=== PATIENT | female | born 1980 | race Hispanic/Latino ===

== ENCOUNTER 2022-09-27 22:21 | Emergency (ER) | payer OTHER ==
[~2022-09-27] VITALS: Ht 157.5 cm; Wt 87.5 kg
[2022-09-27 23:24] VITALS: BP 154/74
[2022-09-27] MEDS ORDERED: AMOX1TAB16 PO (23:25)
== END 2022-09-27 23:50 | disposition home or self-care (01) ==
LOC: EDH 22:21
DX: L03.211 Cellulitis of face (principal)

== ENCOUNTER 2023-10-31 08:51 | Emergency (ER) | payer OTHER ==
[~2023-10-31] VITALS: Ht 157.5 cm; Wt 81.6 kg
[~2023-10-31 08:51] MED LIST: AMOX1TAB16 PO
[2023-10-31 08:57] VITALS: BP 159/95; PULSE 89; RESP 16; O2SAT 99
[2023-10-31] MEDS ORDERED: SILVER SULFADIAZINE CREAM 400 GM TP SCH (09:30)
[2023-10-31] MEDS ORDERED: HYDROCODONE/ACETAMINOPHEN 5/325 MG TAB PO ONE (09:30)
[2023-10-31] MEDS ORDERED: KETOROLAC 30MG VIAL (30MG/ML) IM ONE (09:30)
[2023-10-31] MEDS ORDERED: IBUP-2071 PO (09:33)
[2023-10-31] MEDS ORDERED: MUPI22OI2 TP (09:33)
[2023-10-31] MEDS ORDERED: SILVER SULFADIAZINE CREAM 50 GM TP SCH (10:00)
[2023-10-31] MEDS ORDERED: SILVER SULFADIAZINE CREAM 50 GM TP ONE (10:00)
== END 2023-10-31 09:57 | disposition home or self-care (01) ==
LOC: EDH 08:51
DX: T21.12XA Burn of first degree of abdominal wall, initial encounter (principal); T25.122A Burn of first degree of left foot, initial encounter; T31.0 Burns involving less than 10% of body surface; Z79.899 Other long term (current) drug therapy; Z98.890 Other specified postprocedural states; T79.8XXA Other early complications of trauma, initial encounter; X08.8XXA Exposure to other specified smoke, fire and flames, initial encounter; Y93.89 Activity, other specified; Y92.89 Other specified places as the place of occurrence of the external cause; Y99.8 Other external cause status
CPT/HCPCS: 99285; 16025; 96372; J1885

== ENCOUNTER 2024-11-08 22:41 | Emergency (ER) | payer SELFPAY ==
[~2024-11-08] VITALS: Ht 157.5 cm; Wt 77.1 kg
[~2024-11-08 22:41] MED LIST changes: +IBUP-2071 PO; +MUPI22OI2 TP
--- NOTE | 2024-11-08 22:45 | NUR ---
COVID, FLU AND STREP SWABS COLLECTED AND SENT [facility] PROVIDED
[2024-11-08 23:07] LABS: RAPID GROUP A STREP negative (NEGATIVE)
[2024-11-08 23:08] LABS: SARS-CoV-2, RNA, NAAT NEGATIVE SARS CoV-2 (NEGATIVE)
[2024-11-08 23:14] LABS: INFLUENZA TYPE A Negative For Type A (NEGATIVE); INFLUENZA TYPE B Negative For Type B (NEGATIVE)
--- NOTE | 2024-11-08 23:41 | EKG ---
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
[2024-11-08 23:51] LABS: BASOPHILS # (AUTO) 0.02 K/uL (0.00-0.20); BASOPHILS % (AUTO) 0.3 % (0.0-5.0); EOSINOPHILS # (AUTO) 0.16 K/uL (0.00-0.70); EOSINOPHILS % (AUTO) 2.7 % (0.0-8.0); HEMATOCRIT 36.8 % (36-48); IMMATURE GRANULOCYTE ABSOLUTE 0.02 K/uL (0-1); LYMPHOCYTES # (AUTO) 1.2 K/uL (1.0-4.8); LYMPHOCYTES % (AUTO) 19.6 % (21.0-51.0); MEAN CORPUSCULAR HEMOGLOBIN 31.7 pg (27.0-33.0); MEAN CORPUSCULAR HGB CONC 34.8 g/dL (32.0-36.0); MEAN CORPUSCULAR VOLUME 91.1 fL (79-99); MONOCYTES # (AUTO) 0.3 K/uL (0.1-1.0); MONOCYTES % (AUTO) 5.3 % (3.0-13.0); NEUTROPHILS # (AUTO) 4.2 K/uL (1.8-7.7); NEUTROPHILS % (AUTO) 71.8 % (40.0-77.0); PLATELET COUNT (AUTO) 243 K/uL (130-400); RED BLOOD CELL COUNT(AUTO) 4.04 MIL/uL (4.00-5.50); RED CELL DISTRIBUTION WIDTH 12.9 % (11.0-15.5); WHITE BLOOD COUNT (AUTO) 5.9 K/uL (4.8-10.8)
[2024-11-09 00:06] LABS: APPEARANCE,URINE CLEAR (CLEAR); BILIRUBIN,URINE NEGATIVE (NEGATIVE); COLOR,URINE YELLOW (YELLOW); GLUCOSE, URINE (UA) NEGATIVE (NEGATIVE); KETONES,URINE NEGATIVE (NEGATIVE); LEUKOCYTE ESTERASE ,URINE NEGATIVE Leu/uL (NEGATIVE); NITRATE,URINE NEGATIVE (NEGATIVE); PH,URINE 6.5 (5.0-8.0); PROTEIN,URINE NEGATIVE (NEGATIVE)
[2024-11-09 00:07] LABS: ALBUMIN 3.4 g/dL (3.5-5.0); BILIRUBIN,DIRECT 0.1 mg/dL (0.0-0.3); BILIRUBIN,TOTAL 0.6 mg/dL (0.2-1.0); TOTAL PROTEIN, SERUM 7.4 g/dL (6.0-8.3)
[2024-11-09 00:10] LABS: ADD UA MICROSCOPIC YES
[2024-11-09 00:12] LABS: MUCUS,URINE RARE LPF (None Seen); SQUAMOUS EPITHELIAL CELL,UR FEW /HPF (0-2)
[2024-11-09 00:18] LABS: HCG,QUALITATIVE URINE NEGATIVE (NEGATIVE)
[2024-11-09 00:25] LABS: EOSINOPHILS % (MANUAL) 4 % (1-6); LYMPHOCYTES % (MANUAL) 19 % (22-44); MAN.DIFF COMMENT-IMPRESSION MANUAL DIFFERENTIAL; MONOCYTES % (MANUAL) 2 % (2-9); REACTIVE LYMPHOCYTES 2 % (0-0); SEGMENTED NEUTROPHILS % 73 % (40-70); TOTAL CELLS COUNTED 100
[2024-11-09 00:27] LABS: PLATELET MORPHOLOGY COMMENT ADEQUATE; WBC MORPHOLOGY NORMAL
--- NOTE | 2024-11-09 00:48 | ERN ---
ED Note History of Present Illness Stated Complaint: BODYACHES, NAUSEA Chief Complaint: Flu Symptoms Time Seen by MD: 22:42 Time Seen by Midlevel: 22:42 Dictation: The patient is a 44-year-old female with a history of tubal ligation who presents to the emergency department with complaints of generalized body aches, nausea, one episode of nonbloody vomiting, onset yesterday. Patient denies any abdominal pain, constipation or diarrhea. Denies any urinary discomfort, shortness of breath. Allergies: Coded Allergies: No Known Drug Allergies (Unverified Allergy, Unknown, 09/27/22) Home Meds Active Scripts Mupirocin (Mupirocin Ointment) 2 % Oint, 1 APPL TP TID, #1 TUBE 0 Refills Prov:HAYDER ROACH 10/31/23 Ibuprofen (Ibuprofen) 800 Mg Tablet, 800 MG PO Q6H PRN for PAIN, #20 TAB 0 Refills Prov:HAYDER ROACH 10/31/23 Amoxicillin/Potassium Clav (Amox Tr-K Clv 875-125 mg Tab) 1 Each Tablet, 1 EACH PO BID for 7 Days, #14 TAB 0 Refills Prov:ALONZO LOWRY MD 09/27/22 Past Medical History Past Medical History: No Pertinent History Surgical History: Other, BTL Surgical History Other: TUBAL LIGATION Social History: Other RN Note Reviewed/Agreed w/PFSH: Yes Review of System Dictation Constitutional: Negative for fever,chills, and weight loss positive for generalized body aches Eyes: Negative for injury, pain,redness, and discharge ENT: Negative for injury,pain or swelling Cardiovascular: Negative for chest pain, palpitations, and edema Respiratory: Negative for shortness of breath, cough, and wheezing, Abdomen/GI: Negative for abdominal pain, diarrhea, and constipation positive for nausea and vomiting Back: Negative for injury and pain : Negative for injury, bleeding and discharge MS/Extremity: Negative for injury and deformity Skin: Negative for rash, and discoloration Neuro: Negative for headache, weakness, numbness, tingling, and seizure Psych: Negative for suicide ideation, homicidal ideation, and hallucinations Initial Vital Sign VS Vital Signs Date Time Temp Pulse Resp B/P (MAP) Pulse Ox O2 Delivery O2 Flow Rate FiO2 11/08/24 22:42 99.9 83 16 147/82 100 Room Air Physical Exam Dictation Vital Signs reviewed General Appearance: Alert, oriented x 3, no acute distress, well developed, nourished. Head and Face: non-traumatic. Eyes: PERRL, pink conjunctivas, eyelid no trauma, anterior chamber with arcus senilis. Ears: Pinnas intact and no signs of trauma or erythema ear canals clear and no discharge TM no erythema Nose: No discharge, no bleeding. Oropharynx: Mouth normal, tongue pink. pharynx clear,no erythema, tonsils no exudates, no abscesses noted, mucous membrane moist Neck: Supple, non-tender, no thyromegaly, no masses, no JVD, no bruits Breast:Deferred Chest:No tenderness, no crepitus, no paradoxical movement, no retractions Lungs:Clear, well-ventilated, symmetric, no rales, no wheezing, no rhonchi, no stridor, good breath sounds bilaterally Heart: Regular rate, regular rhythm, no murmur, no gallops Vascular: no peripheral edema, Abdomen: Soft, positive bowel sounds, nondistended, no guarding, nontender, no rebound, no masses no hepatomegaly, no splenomegaly, no Skinner's sign, no hernias. Rectal: Deferred Genital: Deferred Neurological: Normal speech, motor function intact, sensory function intact Musculoskeletal: Neck nontender, full range of motion, back nontender, full range of motion, Extremities: nontender, full range of motion Skin: Color pink, dry, no turgor, no rash, no lacerations, no abrasions, no c ontusions. Lymphatic: Deferred Results (Laboratory/Radiology) Laboratory/Radiology Laboratory Tests Test 11/08/24 22:45 11/08/24 23:44 Influenza Type A Antigen Negative For Type A Influenza Type B Antigen Negative For Type B SARS-CoV-2, RNA, NAAT NEGATIVE SARS CoV-2 Group A Streptococcus Rapid negative (NEGATIVE) White Blood Count 5.9 K/uL (4.8-10.8) Red Blood Count 4.04 MIL/uL (4.00-5.50) Hemoglobin 12.8 g/dL (12.0-16.0) Hematocrit 36.8 % (36-48) Mean Corpuscular Volume 91.1 fL (79-99) Mean Corpuscular Hemoglobin 31.7 pg (27.0-33.0) Mean Corpuscular Hemoglobin Concent 34.8 g/dL (32.0-36.0) Red Cell Distribution Width 12.9 % (11.0-15.5) Platelet Count 243 K/uL (130-400) Mean Platelet Volume 9.5 fL (7.5-10.5) Immature Granulocyte % (Auto) 0.3 % (0-1) Neutrophils (%) (Auto) 71.8 % (40.0-77.0) Lymphocytes (%) (Auto) 19.6 % (21.0-51.0) L Monocytes (%) (Auto) 5.3 % (3.0-13.0) Eosinophils (%) (Auto) 2.7 % (0.0-8.0) Basophils (%) (Auto) 0.3 % (0.0-5.0) Neutrophils # (Auto) 4.2 K/uL (1.8-7.7) Lymphocytes # (Auto) 1.2 K/uL (1.0-4.8) Monocytes # (Auto) 0.3 K/uL (0.1-1.0) Eosinophils # (Auto) 0.16 K/uL (0.00-0.70) Basophils # (Auto) 0.02 K/uL (0.00-0.20) Absolute Immature Granulocyte (auto 0.02 K/uL (0-1) Segmented Neutrophils % 73 % (40-70) H Lymphocytes % (Manual) 19 % (22-44) L Monocytes % (Manual) 2 % (2-9) Eosinophils % (Manual) 4 % (1-6) Nucleated Red Blood Cells 0.0 % (0.0-0.19) Differential Comment MANUAL DIFFERENTIAL Reactive Lymphocytes 2 % (0-0) H White Cell Morphology Comment NORMAL Platelet Morphology Comment ADEQUATE Red Blood Cell Morphology NORMAL Urine Color YELLOW (YELLOW) Urine Appearance CLEAR (CLEAR) Urine pH 6.5 (5.0-8.0) Urine Specific Fisher 1.019 (1.001-1.031) Urine Protein NEGATIVE mg/dL (NEGATIVE) Urine Glucose (UA) NEGATIVE mg/dL (NEGATIVE) Urine Ketones NEGATIVE mg/dL (NEGATIVE) Urine Occult Blood +- (TRACE) (NEGATIVE) H Urine Nitrate NEGATIVE (NEGATIVE) Urine Bilirubin NEGATIVE mg/dL (NEGATIVE) Urine Urobilinogen 2.0 mg/dL (0.2-1.0) H Urine Leukocyte Esterase NEGATIVE Keta/uL Urine RBC 6-10 /HPF (0-1) H Urine WBC 2-5 /HPF (0-1) H Urine Squamous Epithelial Cells FEW /HPF (0-2) Urine Bacteria None /HPF (None Seen) Urine HCG, Qualitative NEGATIVE (NEGATIVE) Sodium Level 140 mmol/L (136-145) Potassium Level 4.0 mmol/L (3.5-5.1) Chloride Level 104 mmol/L (101-111) Carbon Dioxide Level 32 mmol/L (21-32) Blood Urea Nitrogen 6 mg/dL (7-18) L Creatinine 1.0 mg/dL (0.5-1.0) Glomerular Filtration Rate Calc 72 mL/min (>90) Random Glucose 118 mg/dL (70-105) H Total Calcium 9.0 mg/dL (8.5-10.1) Total Bilirubin 0.6 mg/dL (0.2-1.0) Direct Bilirubin 0.1 mg/dL (0.0-0.3) Aspartate Amino Transf (AST/SGOT) 20 U/L (10-37) Alanine Aminotransferase (ALT/SGPT) 36 U/L (12-78) Alkaline Phosphatase 138 U/L (50-136) H Troponin I High Sensitivity < 4 ng/L (4-50) L Total Protein 7.4 g/dL (6.0-8.3) Albumin 3.4 g/dL (3.5-5.0) L Lipase 23 U/L (16-77) Labs Reviewed?: Yes EKG: (+) rhythm (Sinus rhythm) EKG Comment: EKG 11/08/2024 2339 ventricular rate 79, regular rate and rhythm, normal sinus rhythm, no STEMI ED Course ED Course Orders Procedure Category Date Status Time Covid Rna Naat LAB 11/08/24 Complete 22:44 Influenza Type A & B, LAB 11/08/24 Complete Rapid 22:44 Rapid (Group A Strep) LAB 11/08/24 Complete 22:44 Cbc With Differential LAB 11/08/24 Complete 23:32 Troponin I High LAB 11/08/24 Complete Sensitivity 23:32 ,Urine Test LAB 11/08/24 Complete 23:32 Urinalysis Profile LAB 11/08/24 Complete 23:32 12 Lead Ekg Tracing- EKG 11/08/24 Complete Technical 23:32 0.9%Nacl 1000ml (Ns PHA 11/09/24 Complete 1000ml) 00:00 Ondansetron 4mg Inj PHA 11/09/24 Complete (Zofran 4mg Inj) 00:00 Pantoprazole 40mg Inj PHA 11/09/24 Complete (Protonix 40mg Inj 00:00 Chest 1vw RAD 11/08/24 Taken 23:32 Lipase LAB 11/08/24 Complete 23:32 Basic Metabolic Panel LAB 11/08/24 Complete 23:32 Hepatic Function Panel LAB 11/08/24 Complete 23:32 Manual Differential LAB 11/08/24 Complete 23:44 Current Medications Medications (Trade) Dose Ordered Sig/Fredi Route PRN Reason Start Time Stop Time Status Last Admin Dose Admin Ondansetron HCl (zoFRAN 4MG INJ) 4 mg ONCE ONCE IVP 11/09/24 00:00 11/09/24 00:01 DC 11/09/24 01:37 Pantoprazole Sodium (PROTonix 40MG INJ) 40 mg ONCE ONCE IVP 11/09/24 00:00 11/09/24 00:01 DC 11/09/24 01:37 Sodium Chloride 1,000 ml @ 0 mls/hr ONCE ONCE IV 11/09/24 00:00 11/09/24 00:01 DC 11/09/24 01:37 Vital Signs Date Time Temp Pulse Resp B/P (MAP) Pulse Ox O2 Delivery O2 Flow Rate FiO2 11/08/24 22:42 99.9 83 16 147/82 100 Room Air Medical Decision Making MDM The patient is a 44-year-old female with a history of tubal ligation who presents to the emergency department with complaints of generalized body aches, nausea, one episode of nonbloody vomiting, onset yesterday. Patient denies any abdominal pain, constipation or diarrhea. Denies any urinary discomfort, shortness of breath. CBC showed no leukocytosis, no anemia, chemistry showed no electrolyte imbalance, GFR of 70s, negative lipase, negative troponin, urinalysis unremarkable, serology negative. Chest x-ray unremarkable Patient with no abdominal pain, nontender to palpation no chest pain . Patient in no acute distress. Symptoms likely viral in nature. Discussed with the patient lab results and imaging. Patient agrees to be discharged and agrees to return if anything worsens. Differential diagnosis: Dehydration, electrolyte imbalance, upper respiratory infection, ACS Need for hospitalization: Patient does not meet criteria for hospitalization. There are no social concerns with this patient. DX & DISP Disposition: Discharge Departure Impression: Primary Impression: Viral illness Additional Impressions: Generalized body aches, Nausea and vomiting Condition: Stable Scripts Ondansetron (Ondansetron Odt) 4 Mg Tab.rapdis 4 MG PO Q6HPRN PRN for nausea, #16 TAB 0 Refills Prov: TRESA ROPER 11/09/24 Additional Instructions: Please follow up with your primary doctor in 1-2 days. If symptoms worsen please return to ER. FOLLOW-UP WITH PRIMARY CARE PROVIDER IN 1 TO 2 DAYS. TAKE MEDICATIONS DIRECTED HERE IN THE EMERGENCY ROOM. OKAY TO CONTINUE HOME MEDICATIONS UNLESS OTHERWISE DISCUSSED DURING YOUR VISIT IN THE EMERGENCY ROOM TODAY. RETURN TO YOUR NEAREST EMERGENCY ROOM IF SYMPTOMS WORSEN OR IF THERE IS NO IMPROVEMENT. CALL 911 IF YOU NEED IMMEDIATE ASSISTANCE. TAKE TYLENOL OR MOTRIN [id number] NEEDED AND IF NO CONTRAINDICATIONS ARE PRESENT. INCREASE ORAL HYDRATION. A WOUND CULTURE OR URINE CULTURE WAS ORDERED HERE IN THE EMERGENCY ROOM DEPARTMENT PLEASE FOLLOW-UP WITH PRIMARY CARE PROVIDER AND ADVISE THEM TO GET REPEAT PORTS FROM OUR FACILITY. IF YOU HAD ANY MAGALIE WRAP/SPLINTS THAT WERE APPLIED HERE, PLEASE DO NOT REMOVE THEM UNTIL YOU SEE YOUR PRIMARY CARE OR SPECIALTY. Referrals: SELF,REFERRAL (PCP) Time of Disposition: 02:02 I have reviewed the case, and I agree with, Diagnosis and Plan TRESA ROPER DOPE MIXER Nov 09, 2024 00:48
[2024-11-09] MEDS: PANTOPrazole 40 MG/VIAL IVP ONE (01:37)
[2024-11-09] MEDS: 0.9%NACL 1000ML 1,000 ML IV ONE (01:37)
[2024-11-09] MEDS: ondanSETRON 4MG INJ IVP ONE (01:37)
[2024-11-09] MEDS ORDERED: ONDA-243 PO (02:03)
[2024-11-09 02:54] VITALS: BP 124/88; PULSE 84; RESP 16; TEMP 99; O2SAT 98
--- NOTE | 2024-11-09 09:31 | HMCIMG ---
Exam Type: CHEST 1VW Clinical Information: gbw Comparison: None Findings: The lungs are clear of infiltrates. The heart is normal in size. The bony and soft tissue structures of the chest are unremarkable. Impression: Clear lungs.
== END 2024-11-09 02:59 | disposition home or self-care (01) ==
LOC: EDH 22:41
DX: B34.9 Viral infection, unspecified (principal); M79.10 Myalgia, unspecified site; R11.2 Nausea with vomiting, unspecified; Z98.51 Tubal ligation status; Z20.822 Contact with and (suspected) exposure to COVID-19
CPT/HCPCS: 99284; 71045; 87635; 80076; 84484; 80048; 83690; 85025; 87880; 87804 ×2; 81001; 81025; 36415; 93005; 96374; 96361; 96375; J7030; J2405; J2470

== ENCOUNTER 2025-09-09 00:39 | Emergency (ER) | payer SELFPAY ==
[~2025-09-09] VITALS: Ht 157.5 cm; Wt 78.0 kg
[~2025-09-09 00:39] MED LIST changes: +ONDA-243 PO
--- NOTE | 2025-09-09 00:52 | NUR ---
SEPSIS ALERT CALLED OVERHEAD TO ROOM 20; PT WITH TEMP OF 101.1, PULSE OF 110
--- NOTE | 2025-09-09 00:59 | ERN ---
ED Note History of Present Illness Stated Complaint: C/O LOWER BACK PAIN W/PAIN WHEN VOIDING Chief Complaint: Painful Urination Time Seen by MD: 00:45 Time Seen by Midlevel: 00:45 Dictation: The patient is a 45-year old female with no medical history who presents to the emergency department with complains of burning urination, bilateral flank pain and fever onset yesterday. Patient denies any vomiting or diarrhea. Allergies: Coded Allergies: No Known Drug Allergies (Unverified Allergy, Unknown, 09/27/22) Home Meds Active Scripts Ibuprofen (Ibuprofen) 600 Mg Tablet, 1 TAB PO TID for pain for 10 Days, #30 TAB 0 Refills with food Prov:BUNNY ROPERLEN [facility] 09/09/25 Sulfamethoxazole/Trimethoprim (Bactrim Ds Tablet) 800 Mg-160 Mg Tablet, 1 TAB PO BID for 7 Days, #14 TAB 0 Refills Prov:TRESA ROPER [facility] 09/09/25 Ondansetron (Ondansetron Odt) 4 Mg Tab.rapdis, 4 MG PO Q6HPRN PRN for nausea, #16 TAB 0 Refills Prov:ROPERTRESA [facility] 11/09/24 Mupirocin (Mupirocin Ointment) 2 % Oint, 1 APPL TP TID, #1 TUBE 0 Refills Prov:HAYDER ROACH [facility] 10/31/23 Ibuprofen (Ibuprofen) 800 Mg Tablet, 800 MG PO Q6H PRN for PAIN, #20 TAB 0 Refil ls Prov:HAYDER ROACH [facility] 10/31/23 Amoxicillin/Potassium Clav (Amox Tr-K Clv 875-125 mg Tab) 1 Each Tablet, 1 EACH PO BID for 7 Days, #14 TAB 0 Refills Prov:ALONZO LOWRY MD 09/27/22 Past Medical History Past Medical History: No Pertinent History Surgical History: None Surgical History Other: TUBAL LIGATION Social History: Other LMP: Aug 21, 2025 RN Note Reviewed/Agreed w/PFSH: Yes Review of System Dictation Constitutional: Negative for weight loss positive for fever chills Eyes: Negative for injury, pain,redness, and discharge ENT: Negative for injury,pain or swelling Cardiovascular: Negative for chest pain, palpitations, and edema Respiratory: Negative for shortness of breath, cough, and wheezing, Abdomen/GI: Negative for abdominal pain, nausea, vomiting, diarrhea, and constipation Back: Negative for injury and pain : Negative for injury, bleeding and discharge positive for bilateral flank pain MS/Extremity: Negative for injury and deformity Skin: Negative for rash, and discoloration Neuro: Negative for headache, weakness, numbness, tingling, and seizure Psych: Negative for suicide ideation, homicidal ideation, and hallucinations Initial Vital Sign VS Vital Signs Date Time Temp Pulse Resp B/P (MAP) Pulse Ox O2 Delivery O2 Flow Rate FiO2 09/09/25 00:40 101.1 110 20 146/98 100 Room Air 09/09/25 00:59 0 21 Physical Exam Dictation Vital Signs reviewed General Appearance: Alert, oriented x 3, no acute distress, well developed, nourished. Head and Face: non-traumatic. Eyes: PERRL, pink conjunctivas, eyelid no trauma, anterior chamber with arcus senilis. Ears: Pinnas intact and no signs of trauma or erythema ear canals clear and no discharge TM no erythema Nose: No discharge, no bleeding. Oropharynx: Mouth normal, tongue pink. pharynx clear,no erythema, tonsils no exudates, no abscesses noted, mucous membrane moist Neck: Supple, non-tender, no thyromegaly, no masses, no JVD, no bruits Breast:Deferred Chest:No tenderness, no crepitus, no paradoxical movement, no retractions Lungs:Clear, well-ventilated, symmetric, no rales, no wheezing, no rhonchi, no stridor, good breath sounds bilaterally Heart: Regular rate, regular rhythm, no murmur, no gallops Vascular: no peripheral edema, Abdomen: Soft, positive bowel sounds, nondistended, no guarding, nontender, no rebound, no masses no hepatomegaly, no splenomegaly, no Skinner's sign, no hernias. Rectal: Deferred Genital: Deferred Neurological: Normal speech, motor function intact, sensory function intact Musculoskeletal: Neck nontender, full range of motion, back nontender, full range of motion, Extremities: nontender, full range of motion Skin: Color pink, dry, no turgor, no rash, no lacerations, no abrasions, no contusions. Lymphatic: Deferred Results (Laboratory/Radiology) Laboratory/Radiology Laboratory Tests Test 09/09/25 00:47 09/09/25 01:00 Urine Color LIGHT-YELLOW (YELLOW) Urine Appearance CLEAR (CLEAR) Urine pH 8.5 (5.0-8.0) H Urine Specific [place]well 1.025 (1.001-1.031) Urine Protein 10 mg/dL (NEGATIVE) H Urine Glucose (UA) NEGATIVE mg/dL (NEGATIVE) Urine Ketones NEGATIVE mg/dL (NEGATIVE) Urine Occult Blood MODERATE (NEGATIVE) H Urine Nitrate NEGATIVE (NEGATIVE) Urine Bilirubin NEGATIVE mg/dL (NEGATIVE) Urine Urobilinogen 3 mg/dL (0.2-1.0) H Urine Leukocyte Esterase NEGATIVE Ekta/uL Urine RBC 26-50 /HPF (0-1) H Urine WBC 2-5 /HPF (0-1) H Urine Squamous Epithelial Cells FEW /HPF (0-2) Urine Bacteria None /HPF (None Seen) Urine HCG, Qualitative NEGATIVE (NEGATIVE) White Blood Count 8.3 K/uL (4.8-10.8) Red Blood Count 4.45 MIL/uL (4.00-5.50) Hemoglobin 12.3 g/dL (12.0-16.0) Hematocrit 37.5 % (36-48) Mean Corpuscular Volume 84.3 fL (79-99) Mean Corpuscular Hemoglobin 27.6 pg (27.0-33.0) Mean Corpuscular Hemoglobin Concent 32.8 g/dL (32.0-36.0) Red Cell Distribution Width 15.3 % (11.0-15.5) Platelet Count 262 K/uL (130-400) Mean Platelet Volume 9.8 fL (7.5-10.5) Immature Granulocyte % (Auto) 0.4 % (0-1) Neutrophils (%) (Auto) 88.0 % (40.0-77.0) H Lymphocytes (%) (Auto) 7.8 % (21.0-51.0) L Monocytes (%) (Auto) 3.5 % (3.0-13.0) Eosinophils (%) (Auto) 0.1 % (0.0-8.0) Basophils (%) (Auto) 0.2 % (0.0-5.0) Neutrophils # (Auto) 7.3 K/uL (1.8-7.7) Lymphocytes # (Auto) 0.7 K/uL (1.0-4.8) L Monocytes # (Auto) 0.3 K/uL (0.1-1.0) Eosinophils # (Auto) 0.01 K/uL (0.00-0.70) Basophils # (Auto) 0.02 K/uL (0.00-0.20) Absolute Immature Granulocyte (auto 0.03 K/uL (0-1) Nucleated Red Blood Cells 0.0 % (0.0-0.19) White Cell Morphology Comment See comments Sodium Level 136 mmol/L (136-145) Potassium Level 3.4 mmol/L (3.5-5.1) L Chloride Level 100 mmol/L (101-111) L Carbon Dioxide Level 24 mmol/L (21-32) Blood Urea Nitrogen 14 mg/dL (7-18) Creatinine 1.0 mg/dL (0.5-1.0) Glomerular Filtration Rate Calc 71 mL/min (>90) Random Glucose 109 mg/dL (70-105) H Lactic Acid Level 1.4 mmol/L (0.8-2.5) Total Calcium 8.5 mg/dL (8.5-10.1) REASON: flank pain ORDERING PHYSICIAN: SHERIDAN SWANN DO PROCEDURE: ABD PEL WO - CT ABDOMEN/PELVIS W/O CONTRAST EXAM: CT Abdomen and Pelvis without IV contrast. CLINICAL HISTORY: Pain in the flank. TECHNIQUE: Thin collimated axial CT images of the abdomen and pelvis were obtained, with sagittal and coronal reformatted images also submitted. A CT scan is done according to ALARA (As Low As Reasonably Achievable). CONTRAST: None. COMPARISON: None. FINDINGS: Unremarkable visualized lung parenchyma. There is no focal abnormality appreciated within the liver, gallbladder, pancreas, spleen, or adrenals. There is a 2 mm calculus in the interpolar region of the left kidney. There is no obvious bowel wall thickening. Bowel loops are normal in caliber without evidence of obstruction or ileus. The appendix is unremarkable. There is no abnormality within the urinary bladder. Unremarkable reproductive organs. No lymphadenopathy. No free fluid. No pneumoperitoneum. No gross abnormality in the abdominal vessels. There is no acute osseous abnormality. Moderate to severe L4-L5 and mild L5-S1 spondylosis. IMPRESSIONS: Nonobstructive left renal calculus. No ureteral calculus or hydronephrosis bilaterally. No acute process in the abdomen or pelvis. /[facility] Labs Reviewed?: Yes ED Course ED Course Orders Procedure Category Date Status Time Cbc With Differential LAB 09/09/25 Complete 00:53 Blood Cult GREG 09/09/25 In Process 00:53 Urinalysis Profile LAB 09/09/25 Complete 00:53 Acetaminophen 500mg PHA 09/09/25 Complete Tab (Tylenol 500mg T 01:00 0.9%Nacl 1000ml (Ns PHA 09/09/25 Complete 1000ml) 01:00 Lactic Acid LAB 09/09/25 Complete 00:53 Ceftriaxone 2gm Vial PHA 09/09/25 Complete (Rocephin 2gm Inj) 01:00 Basic Metabolic Panel LAB 09/09/25 Complete 00:53 ,Urine Test LAB 09/09/25 Complete 00:53 Ct Abdomen/Pelvis W/O CT 09/09/25 Resulted Contrast 01:26 Ketorolac PHA 09/09/25 Complete Tromethamine 30mg/Ml 03:00 Potassium Bicarb/Cit PHA 09/09/25 Complete Ac 25meq (K-Lyte Ta 03:00 Culture Urine GREG 09/09/25 Logged 03:02 Current Medications Medications (Trade) Dose Ordered Sig/Fredi Route PRN Reason Start Time Stop Time Status Last Admin Dose Admin Acetaminophen (TYLenol 500MG TAB) 1,000 mg ONCE ONCE PO 09/09/25 01:00 09/09/25 01:02 DC 09/09/25 01:09 Ceftriaxone Sodium (Rocephin 2gm Inj) 2 gm ONCE ONCE IVPB 09/09/25 01:00 09/09/25 01:02 DC 09/09/25 01:08 Ketorolac Tromethamine (toRADol) 30 mg ONCE ONCE IVP 09/09/25 03:00 09/09/25 03:01 DC 09/09/25 02:50 Potassium Bicarbonate (K-Lyte Tablet Eff 25 Meq Tablet.eff) 25 meq ONCE ONCE PO 09/09/25 03:00 09/09/25 03:01 DC 09/09/25 02:49 Sodium Chloride 2,340 ml @ 780 mls/hr ONCE ONCE IV 09/09/25 01:00 09/09/25 03:25 DC 09/09/25 01:07 Vital Signs Date Time Temp Pulse Resp B/P (MAP) Pulse Ox O2 Delivery O2 Flow Rate FiO2 09/09/25 03:24 99.0 74 16 109/63 100 Room Air* 0 21 09/09/25 02:41 100.6 83 18 108/64 100 Room Air* 0 21 09/09/25 01:09 103.3 09/09/25 00:59 103.3 104 24 135/85 100 Room Air* 0 21 09/09/25 00:40 101.1 110 20 146/98 100 Room Air Medical Decision Making MDM The patient is a 45-year old female with no medical history who presents to the emergency department with complains of burning urination, bilateral flank pain and fever onset yesterday. Patient denies any vomiting or diarrhea. BC showed no leukocytosis, no anemia, chemistry showed mild hypokalemia, GFR of 71, lactic acid of 1.4, urinalysis positive for blood, small WBCs, negative nitrites, negative leukocyte esterase. CT abdomen pelvis showed a nonobstructive left renal calculus. No hydronephrosis. On physical exam patient is in no acute distress, nontoxic appearance. we will send her urine for culture and treat for urinary tract infection. With no abdominal pain, nausea or vomiting. Stable vital signs. Differential diagnosis: Sepsis, UTI, pyelonephritis, electrolyte imbalance, dehydration Need for hospitalization: Patient does not meet criteria for hospitalization. There are no social concerns with this patient. DX & DISP Disposition: Discharge Departure Impression: Primary Impression: Left renal stone Additional Impression: UTI (urinary tract infection) Condition: Stable Scripts Ibuprofen (Ibuprofen) 600 Mg Tablet 1 TAB PO TID for pain for 10 Days, #30 TAB 0 Refills with food Prov: TRESA ROPER HVAC TECHNICIAN 09/09/25 Sulfamethoxazole/Trimethoprim (Bactrim Ds Tablet) 800 Mg-160 Mg Tablet 1 TAB PO BID for 7 Days, #14 TAB 0 Refills Prov: TRESA ROPERP 09/09/25 Additional Instructions: Your labs were unremarkable. Your CT scan showed a small kidney stone. Please continue oral hydration at home. Take your antibiotics as prescribed. Follow up on your urine culture. If anything worsens please return to ER. FOLLOW-UP WITH PRIMARY CARE PROVIDER IN 1 TO 2 DAYS. TAKE MEDICATIONS DIRECTED HERE IN THE EMERGENCY ROOM. OKAY TO CONTINUE HOME MEDICATIONS UNLESS OTHERWISE DISCUSSED DURING YOUR VISIT IN THE EMERGENCY ROOM TODAY. RETURN TO YOUR NEAREST EMERGENCY ROOM IF SYMPTOMS WORSEN OR IF THERE IS NO IMPROVEMENT. CALL 911 IF YOU NEED IMMEDIATE ASSISTANCE. TAKE TYLENOL [id number] NEEDED AND IF NO CONTRAINDICATIONS ARE PRESENT. INCREASE ORAL HYDRATION. A WOUND CULTURE OR URINE CULTURE WAS ORDERED HERE IN THE EMERGENCY ROOM DEPARTMENT PLEASE FOLLOW-UP WITH PRIMARY CARE PROVIDER AND ADVISE THEM TO GET REPEAT PORTS FROM OUR FACILITY. IF YOU HAD ANY MAGALIE WRAP/SPLINTS THAT WERE APPLIED HERE, PLEASE DO NOT REMOVE THEM UNTIL YOU SEE YOUR PRIMARY CARE OR SPECIALTY. Referrals: SELF,REFERRAL (PCP) PRADEEP MCKEON MD Time of Disposition: 03:01 I have reviewed the case, and I agree with, Diagnosis and Plan TRESA ROPER Sep 09, 2025 00:59 SHERIDAN SWANN DO Sep 09, 2025 04:52
[2025-09-09] MEDS: 0.9%NACL 1000ML 2,340 ML IV ONE (01:07)
[2025-09-09 01:17] LABS: IMMATURE GRANULOCYTE ABSOLUTE 0.03 K/uL (0-1); NUCLEATED RED BLOOD CELLS 0.0 % (0.0-0.19); PLATELET COUNT (AUTO) 262 K/uL (130-400); RED BLOOD CELL COUNT(AUTO) 4.45 MIL/uL (4.00-5.50); RED CELL DISTRIBUTION WIDTH 15.3 % (11.0-15.5); WHITE BLOOD COUNT (AUTO) 8.3 K/uL (4.8-10.8)
[2025-09-09 01:18] LABS: APPEARANCE,URINE CLEAR (CLEAR); GLUCOSE, URINE (UA) NEGATIVE (NEGATIVE); LEUKOCYTE ESTERASE ,URINE NEGATIVE Leu/uL (NEGATIVE); NITRATE,URINE NEGATIVE (NEGATIVE); OCCULT BLOOD,URINE MODERATE (NEGATIVE)
[2025-09-09 01:20] LABS: ADD UA MICROSCOPIC YES; HCG,QUALITATIVE URINE NEGATIVE (NEGATIVE)
[2025-09-09 01:21] LABS: SQUAMOUS EPITHELIAL CELL,UR FEW /HPF (0-2)
[2025-09-09 01:26] LABS: CREATININE 1.0 mg/dL (0.5-1.0); GLOMERULAR FILTR. RATE CALC 71.0 mL/min (>90); GLUCOSE,RANDOM 109.0 mg/dL (70-105); SODIUM SERUM 136.0 mmol/L (136-145); UREA NITROGEN, BLOOD 14.0 mg/dL (7-18)
[2025-09-09 02:42] VITALS: TEMP 100.6
--- NOTE | 2025-09-09 02:47 | HMCIMG ---
EXAM: CT Abdomen and Pelvis without IV contrast. CLINICAL HISTORY: Pain in the flank. TECHNIQUE: Thin collimated axial CT images of the abdomen and pelvis were obtained, with sagittal and coronal reformatted images also submitted. A CT scan is done according to ALARA (As Low As Reasonably Achievable). CONTRAST: None. COMPARISON: None. FINDINGS: Unremarkable visualized lung parenchyma. There is no focal abnormality appreciated within the liver, gallbladder, pancreas, spleen, or adrenals. There is a 2 mm calculus in the interpolar region of the left kidney. There is no obvious bowel wall thickening. Bowel loops are normal in caliber without evidence of obstruction or ileus. The appendix is unremarkable. There is no abnormality within the urinary bladder. Unremarkable reproductive organs. No lymphadenopathy. No free fluid. No pneumoperitoneum. No gross abnormality in the abdominal vessels. There is no acute osseous abnormality. Moderate to severe L4-L5 and mild L5-S1 spondylosis. IMPRESSIONS: Nonobstructive left renal calculus. No ureteral calculus or hydronephrosis bilaterally. No acute process in the abdomen or pelvis. /Mor
[2025-09-09] MEDS ORDERED: IBUP-1492 PO (03:02)
[2025-09-09] MEDS ORDERED: SULF1TAB42 PO (03:02)
[2025-09-09 03:24] VITALS: BP 109/63; PULSE 74; RESP 16; TEMP 98.9; O2SAT 100
== END 2025-09-09 03:25 | disposition home or self-care (01) ==
LOC: EDH 00:39
DX: N20.0 Calculus of kidney (principal); N39.0 Urinary tract infection, site not specified; Z79.1 Long term (current) use of non-steroidal anti-inflammatories (NSAID); Z98.51 Tubal ligation status
CPT/HCPCS: 99285; 74176; 96365; 96366; 96375; 80048; 85025; 87040 ×2; 87086; 83605; 81001; 81025; 36415; J1885; J7030; J0696